=== PATIENT | female | born 1995 | race Hispanic/Latino ===

== ENCOUNTER 2018-04-08 20:00 | Day surgery (SDC) ==
[2018-04-08 20:30] VITALS: BP 138/85; TEMP 99.1; BMI 33.3
--- NOTE | 2018-04-08 20:52 | PDOC.FPROB ---
FMR OB H&P: HPI - History of Present Illness Chief Complaint: Contractions Indentification: 22 year old at 35.5 wks History of Present Illness: 22 year old at 35.5 wks presents with contractions since 2 AM. They were initially irregular and spaced out; however, around 16:00 patient states they started to occur every 10 minutes. She rates the pain at 5/10. She denies any vaginal bleeding, abnormal vaginal discharge, or LoF. Patient denies scotoma, headaches, RUQ pain. She does state that she only drinks 1-2 bottles of water per day. Primary Care Physician: Dr. Arana FMR OB H&P: Current - Care : 1 Para: 0 Gestational age: 35.5 wks Due date: 05/08/2018 - OB Labs Blood type: B RH: positive Antibody Screen: negative HIV: negative RPR: negative HepBsAg: negative Rubella: immune 1 hour gtt: abnormal 3 hour GTT: wnl GBS: unknown FMR OB H&P: History - Past Medical History PMH: Insignificant - OB History OB History: Abnormal 1h GTT w/ normal 3h GTT One elevated BP during - FLIGHT PURSER History FLIGHT PURSER History: Cyst on ovary - Surgical History Sx History: None - Social History Social History: Denies alcohol, tobacco, or drug use during - Family History Family History: Insignificant FMR OB H&P: Medications - Current Home Medications: Medication Instructions Recorded Confirmed Type Vit 108/Iron/Folic AC 1 tablet PO DAILY 04/08/18 04/08/18 History [ One Tablet] Allergies/Adverse Reactions: Allergies Allergy/AdvReac Type Severity Reaction Status Date / Time No Known Drug Allergies Allergy Verified 04/08/18 20:21 FMR OB H&P: ROS - Review of Systems General: denies: fever/chills, weight/appetite/sleep changes Eyes: denies: vision changes, double vision ENT: denies: nasal congestion, rhinorrhea, sore throat Cardiovascular: denies: chest pain, palpitation, edema Respiratory: denies: cough, congestion, shortness of breath Gastrointestinal: reports: abdominal pain. denies: nausea, vomiting Genitourinary (Female): reports: contractions, vaginal pressure. denies: dysuria, vaginal discharge, vaginal pain, vaginal bleeding Musculoskeletal: denies: pain, stiffness Neurologic: denies: numbness, syncope, seizures Integumentary: denies: itching, rash, lesions Hematologic/Lymphatic: denies: prolonged or excessive bleeding Psychological: denies: depression, anxiety FMR OB H&P: Vital Signs - Maternal Vital signs: Vital Signs - First Documented Temp Pulse Resp BP 99.1 F 104 H 18 138/85 04/08/18 20:19 04/08/18 20:19 04/08/18 20:19 04/08/18 20:19 - Heart Tones Baseline: 150 Variability: moderate Acceleration: present Deceleration: absent Category: category 1 [place] contractions every: None seen on monitor FMR OB H&P: Physical Exam - Physical Exam General: NAD, awake, alert and oriented HEENT: MMM Neck: supple Heart: RRR, normal S1/S2 General: CTAB, no respiratory distress Abdomen: soft, gravid, non-tender Musculoskeletal: pulses present Neurological: no tremor, no focal deficit Skin: no rash, capillary refill <2 seconds Lymphatic: no unusual bruising or bleeding, no purpura Psychiatric: intact recent and remote memory, good judgement and insight, normal mood and affect - Pelvic Exam Vulva: normal hair distribution, no lesions, no discharge, no blood SVE: closed/thick/high, posterior at 20:30 FMR OB H&P: A/P - Problem List (1) Current Visit: Yes Status: Acute Qualifiers: Weeks of gestation: 35 weeks Qualified Code(s): Z3A.35 - 35 weeks gestation of (2) Uterine contractions during Current Visit: Yes Status: Acute Code(s): O62.2 - OTHER UTERINE INERTIA Disposition: 22 year old at 35.5 wks presents with contractions 1. sIUP - Pre-term at 35.5 wks - Fragmented PNC ([place]ed [place] at >20 wks, but reportedly had care in [place] prior to 20 weeks) - Abnormal 1 hr GTT with nml 3h GTT - Cervical exam at 20:30 was closed/thick/high, posterior - Recheck in 2 hours 2. Contractions - Cervical check as above - Category I strip - Recheck in 2 hours - PO hydrate 3. Mild dehydration - Patient only drinking 1-2 bottles of water per day - Mildly tachycardic with contractions - PO hydrate and re-evaluate Dispo: Stable. Patient does not appear to be in labor. Will re-evaluate close to 2 hours and after PO hydration. Discussion: Date/Time: 04/08/182049 This H&P was discussed with Dr. Stout who agrees with the above documentation and plan. Signature: Jody Simon, DO PGY-2
--- NOTE | 2018-04-08 21:49 | PDOC.EVN ---
Event Note - Event Note Event Note: 21:48 on 04/08 No cervical change noted on repeat exam No contractions evident on monitor; Category I strip Patient s/p PO hydration; patient given info on how much water to drink per day Labor precautions provided D/c patient home; OB visit with Dr. Arana on 04/14 Jody Simon DO PGY-2
== END 2018-04-08 21:52 | disposition home or self-care (01) ==
LOC: L&D/OP 20:00
PROVIDERS: ATTEND Obstetrics & Gynecology
DX: O47.03 False labor before 37 completed weeks of gestation, third trimester (principal); O99.283 Endocrine, nutritional and metabolic diseases complicating pregnancy, third trimester; E86.0 Dehydration; Z79.899 Other long term (current) drug therapy; Z3A.35 35 weeks gestation of pregnancy
CPT/HCPCS: 59025; 99283

== ENCOUNTER 2018-04-22 21:38 | Day surgery (SDC) | payer OTHER ==
[2018-04-22 22:13] VITALS: BMI 29.9
--- NOTE | 2018-04-22 22:50 | PDOC.LDHP ---
Labor and Delivery H&P HPI: Patient of Dr Arana here in Triage for CTX for last HR EGA: 37 weeks 5 days HPI: 22yo G1 at early term with irregular CTX, no LOF, NO VB. Good FM, no DEJESUS, no recent trauama Review of Systems: complete ROS performed and as per HPI only Current gestational age (weeks): 37 (5 days) Dating criteria: last menstrual period Grav: 1 Para: 0 Current complications: none Abnormal US findings: No Current medications: none Previous surgical history: none Allergies/Adverse Reactions: Allergies Allergy/AdvReac Type Severity Reaction Status Date / Time No Known Drug Allergies Allergy Verified 04/22/18 22:14 - Physical Exam Vital signs reviewed and normal: yes Abnormal vital signs: pulse goes to 120 when she gets anxiuos General: NAD Heart: RRR Lungs: CTAB Abdomen: gravid Extremeties: no edema FHT: category 1 [place] contractions every: irritability with one contraction every 10-12 min - Vaginal Exam cm dilated: 0 Effacement: 25% Station: -1 - Assessment Threatened labor at early term: closed cervix - Plan Plan: observation in L&D (Cat 1 strip; threatened labor d/w patient at bedside; no evidence acute problem. Maternal pulse was slightly elevated when anxiuos but reduces to 90s once she calms down. No past HX anxiety)
--- NOTE | 2018-04-22 23:03 | PDOC.EVN ---
Event Note - Event Note Event Note: At bedside, I noted one BP of 146/70s...I will do serial BPs for an hour. She has no PIH sxs. Stadol for therapeutic rest discussed with her.
[2018-04-22] MEDS ORDERED: Butorphanol Tartrate 1 MG/ML VIAL IM SCH (23:15)
== END 2018-04-23 00:30 | disposition home or self-care (01) ==
LOC: L&D/OP 21:38
PROVIDERS: ATTEND Obstetrics & Gynecology
DX: O47.1 False labor at or after 37 completed weeks of gestation (principal); Z3A.37 37 weeks gestation of pregnancy; Z79.899 Other long term (current) drug therapy
CPT/HCPCS: 96372; 99283; J0595

== ENCOUNTER 2018-04-26 00:37 | Observation (INO) | payer MEDICAID, OTHER, SELFPAY ==
[2018-04-26 01:19] VITALS: BMI 31.6
[2018-04-26 01:46] LABS: Amnisure Test No Membranes Rupture (No Rupture)
[2018-04-26 01:47] LABS: Amnisure Internal Control QC ACCEPTABLE (ACCEPTABLE)
--- NOTE | 2018-04-26 03:45 | ER ---
DATE OF SERVICE: 04/26/2018 PRIMARY OB: Dr. Conor Arana. CHIEF COMPLAINT: Abdominal pain. HISTORY OF PRESENT ILLNESS: The patient is a 22-year-old G1, P0 female with an intrauterine at 38 weeks and 2 days, who is presenting with uterine contractions. The patient reports that her contractions occurring frequently and causing her pain and is here for re-evaluation. The patient was here a couple of days ago for similar complaint and was found to be fingertip thick and high. The patient denies leakage of fluid or vaginal bleeding. She denies headache, chest pain, shortness of breath, nausea, vomiting, diarrhea, constipation, any new rashes, hip problems, knee problems, or muscle weakness. She is having lower back pain. Denies vaginal bleeding or leakage of fluid or urinary urgency. PAST MEDICAL HISTORY: Negative. PAST SURGICAL HISTORY: Negative. ALLERGIES: NO KNOWN DRUG ALLERGIES. MEDICATIONS: vitamins. SOCIAL HISTORY: Denies drug, alcohol, or tobacco use. OB LABS: Blood type is B positive. Antibody screen is negative. VDRL is nonreactive. HIV nonreactive. Hepatitis B surface antigen nonreactive. She is rubella immune. Her 1-hour diabetes screen is 145. Her 3-hour test is within normal limits. GBS test is unavailable at time of dictation. REVIEW OF SYSTEMS: Per HPI. PHYSICAL EXAMINATION: VITAL SIGNS: Blood pressure is 152/88, heart rate of 93, respiratory rate of 20 , and temperature 97.9. GENERAL: She appears to be in no acute distress. She is alert, oriented, cooperative, pleasant to interact with. HEAD: Normocephalic and atraumatic. LUNGS: Clear to auscultation bilaterally. HEART: Regular rate and rhythm. ABDOMEN: Gravid. EXTREMITIES: Nontender, nonedematous. CERVICAL: 1, 50, and -3 station. heart tracing performed for abdominal pain and , baseline is noted to be in the 140s with moderate long-term variability, positive 15 x 15 accelerations, no decelerations. Tocometer shows irritability, but no consistent pattern. ASSESSMENT AND PLAN: The patient is a 22-year-old female here with contractions and no evidence of labor at this time. She does have initial blood pressure 152/88. All of her prior pressures in the last several days as she has presented frequently for the last several days are within normal limits. We will continue to monitor her for serial blood pressures and will check the urine protein. The patient will be reexamined in the next couple hours. Should her blood pressure returned to normal and continue there and there is no evidence of preeclampsia, The patient will be reassessed and likely discharged home with instructions to follow up in the next couple of days with her primary OB. Addendum: Blood pressures in the mild range intermittently for the first couple hours of evaluation. For the last three hours bp are normal with BP 110s/50s. I have reviewed the case with her primary OB. He has asked that she be admitted to observation and be reevaluated in a couple hours Job ID: [id number] MTDD
[2018-04-26 05:13] LABS: Creatinine, Urine 135.37 mg/dL (47-110)
[2018-04-26] MEDS ORDERED: Ondansetron PF 4 MG/2 ML Vial IVP PRN (07:04)
[2018-04-26] MEDS ORDERED: Ibuprofen 800 MG TAB PO PRN (07:04)
[2018-04-26] MEDS ORDERED: Lidocaine 1% (PF) 30 ML VIAL SC PRN (07:04)
[2018-04-26] MEDS ORDERED: NS / Oxytocin 40 units/1000ml 1,000 ML IV PRN (07:04)
[2018-04-26] MEDS ORDERED: Misoprostol 100 MCG TAB PO SCH (07:15)
[2018-04-26] MEDS ORDERED: Lactated Ringer's 1,000 ML IV SCH ×2 (07:15)
[2018-04-26 12:52] VITALS: BP 115/58; TEMP 98.3
--- NOTE | 2018-04-26 14:37 | DIS ---
DATE OF ADMISSION: 04/26/2018 DATE OF DISCHARGE: 04/26/2018 DIAGNOSES: 1. A 38-week intrauterine . 2. Initially elevated blood pressures. PROCEDURES: Nonstress test. HOSPITAL COURSE: The patient was placed on observation on 04/26/2018 for initially elevated blood pressures at term. Her cervix was found to be unfavorable and a PIH workup was performed. Her protein creatinine ratio was 0.12 and the patient was asymptomatic. She had normal blood pressures for 8 hours with a reactive NST. The patient was discussed with Dr. Arana, who agreed to discharge her for followup in his clinic tomorrow. FOLLOWUP: Dr. Arana's clinic tomorrow. DIET: Regular. ACTIVITIES: As tolerated. INSTRUCTIONS: Labor precautions and PIH precautions. Job ID: [id number] [facility]
== END 2018-04-26 12:54 | disposition home health service (06) ==
LOC: L&D/OP 00:37 → L&D 08:30
PROVIDERS: ADMIT Obstetrics & Gynecology; ATTEND Obstetrics & Gynecology
DX: O16.3 Unspecified maternal hypertension, third trimester (principal); Z3A.38 38 weeks gestation of pregnancy
CPT/HCPCS: 82570; 84112; 84156; 99285; G0378

== ENCOUNTER 2018-05-02 11:18 | Inpatient (IN) | payer MEDICAID, OTHER, SELFPAY ==
[2018-05-02 11:48] VITALS: BMI 31.1
[2018-05-02 12:43] LABS: ALT (SGPT) 11 U/L (8-55); AST (SGOT) 20 U/L (5-34); Albumin 2.8 g/dL (3.5-5.0); Alkaline Phosphatase 298 U/L (40-150); Anion Gap 12 mmol/L (10-20); BUN (Urea Nitrogen) 8 mg/dL (7.0-18.7); Bilirubin, Total 0.2 mg/dL (0.2-1.2); Calc. Creatinine Clearance 173 mL/min (70-130); Calcium 8.5 mg/dL (7.8-10.44); Carbon Dioxide 20 mmol/L (22-29); Chloride 108 mmol/L (98-107); Estimated GFR-MDRD Greater than 90; Glucose 74 mg/dL (70-105); Potassium 3.9 mmol/L (3.5-5.1); Protein, Total 5.8 g/dL (6.0-8.3); Sodium 136 mmol/L (136-145)
[2018-05-02 12:53] LABS: #Basophils 0.1 thou/uL (0.0-0.2); #Lymphocytes 1.5 thou/uL (1.20-3.40); #Monocytes 0.6 thou/uL (0.11-0.59); #Neutrophils 5.8 thou/uL (1.40-6.50); %Basophils 0.6 % (0.0-1.0); %Eosinophils 0.2 % (0.0-10.0); %Lymphocytes 18.4 % (28.0-48.0); %Monocytes 7.9 % (0.0-4.0); %Neutrophils 72.8 % (31.0-61.0); Hemoglobin 11.9 g/dL (12.0-16.0); Large Platelets MODERATE; MDiff Complete? YES; Mean Corpuscular HGB CONC 34.3 g/dL (32.0-36.0); Mean Corpuscular Hemoglobin 28.5 pg (25.0-35.0); Mean Corpuscular Volume 83.1 fL (78.0-98.0); Mean Platelet Volume 12.7 fL (7.4-10.4); Platelet Count 92 thou/uL (130-400); Platelet Morphology Comment Appears Decreased; RBC Distribution Width 12.2 % (11.5-14.5); RBC Morphology Normal; Red Blood Cell (RBC) Count 4.18 mill/uL (4.00-5.20)
[2018-05-02] MEDS ORDERED: Ondansetron PF 4 MG/2 ML Vial ONE ×2 (13:50→17:14)
[2018-05-02] MEDS ORDERED: Dexamethasone 20 MG/5 ML VIAL ONE (13:50)
[2018-05-02] MEDS ORDERED: Ketorolac Tromethamine 30 MG/ML VIAL ONE ×2 (13:50→17:14)
[2018-05-02] MEDS ORDERED: diphenhydrAMINE 50 MG/ML VIAL ONE ×2 (13:50→18:38)
[2018-05-02] MEDS ORDERED: Magnesium Sulfate 20 gm/500 ml 20 GM/500 ML BAG ONE (15:45)
[2018-05-02] MEDS: Lactated Ringer's 1,000 ML IV SCH (16:00)
[2018-05-02] MEDS ORDERED: Fentanyl 100 MCG/2 ML VIAL ONE (17:13)
[2018-05-02] MEDS ORDERED: Morphine PF 1 MG/ML SYR ONE (17:13)
[2018-05-02] MEDS ORDERED: Oxytocin 10 UNITS/ML VIAL ONE (17:14)
[2018-05-02] MEDS ORDERED: Bupivacaine 0.75% W/DEXTROSE 8.25% 2 ML AMP ONE (17:14)
[2018-05-02] MEDS ORDERED: ePHEDrine/0.9% NaCl/PF SYRINGE 50 mg/10 ml ONE (17:14)
[2018-05-02] MEDS ORDERED: Dexamethasone 4 mg/ml Vial ONE (17:14)
[2018-05-02] MEDS ORDERED: Lidocaine 2% 10 ML INJ ONE (17:14)
[2018-05-02] MEDS ORDERED: PHENYLEPHRINE-NS 100 MCG/ML 10 ML SYRINGE ONE (17:14)
[2018-05-02] MEDS ORDERED: Promethazine HCl 25 MG/ML VIAL IM PRN ×3 (17:33→23:50)
[2018-05-02] MEDS ORDERED: Ondansetron PF 4 MG/2 ML Vial IVP PRN ×3 (17:33→23:50)
[2018-05-02] MEDS ORDERED: CEFAZOLIN 1 GM VIAL ONE (17:36)
[2018-05-02] MEDS ORDERED: Bicitra 30 ML UDCUP PO SCH (17:45)
[2018-05-02] MEDS ORDERED: CEFAZOLIN 2 GM/50 ML BAG IVPB SCH (17:45)
[2018-05-02] MEDS ORDERED: L&D-Morphine 4 MG/ML VIAL SLOW IVP PRN (18:11)
[2018-05-02] MEDS ORDERED: Ketorolac Tromethamine 30 MG/ML VIAL IVP PRN (18:11)
[2018-05-02] MEDS ORDERED: Eucerin (Mineral Oil/Petrolatum,White) 30 gm Jar TOP PRN (18:11)
[2018-05-02] MEDS ORDERED: HYDROmorphone 2 MG/ML VIAL SLOW IVP PRN (18:11)
[2018-05-02] MEDS ORDERED: Naloxone HCl 0.4 mg/ml Vial IV PRN (18:11)
[2018-05-02] MEDS ORDERED: Naloxone HCl 0.4 mg/ml Vial IVP PRN ×2 (18:11)
[2018-05-02] MEDS ORDERED: Meperidine HCl/PF 25 MG/ML VIAL SLOW IVP PRN ×2 (18:11→20:23)
[2018-05-02] MEDS ORDERED: Ondansetron HCl/PF 4 MG/2 ML Vial IVP PRN (18:11)
[2018-05-02] MEDS ORDERED: diphenhydrAMINE 50 MG/ML VIAL IVP PRN (18:11)
[2018-05-02] MEDS ORDERED: Promethazine HCl 25 MG SUPP PR PRN (18:11)
[2018-05-02] MEDS ORDERED: Ketorolac Tromethamine 30 MG/ML VIAL IVP SCH (18:15)
[2018-05-02] MEDS ORDERED: Communication Order-Pharmacy FS SCH (18:15)
[2018-05-02 18:30] LABS: Hemoglobin 12.5 g/dL (12.0-16.0); Mean Corpuscular Hemoglobin 29.2 pg (25.0-35.0); Mean Corpuscular Volume 83.4 fL (78.0-98.0); Mean Platelet Volume 13.4 fL (7.4-10.4); Platelet Count 99 thou/uL (130-400); RBC Distribution Width 12.2 % (11.5-14.5); Red Blood Cell (RBC) Count 4.27 mill/uL (4.00-5.20); White Blood Cell (WBC) Count 8.4 thou/uL (4.8-10.8)
[2018-05-02 19:04] LABS: Hep B Surf Ag Non-Reactive S/CO (NonReactive); Syphilis Antibody Nonreactive (Nonreactive); Syphilis Antibody Index 0.03 S/CO (<1.00 Non-Reactive)
--- NOTE | 2018-05-02 19:15 | PDOC.LDHP ---
Labor and Delivery H&P HPI: 22 y/o at 39 and 1/7 weeks, presents from clinic with 3+ protein, elevated BP's for further work up for preeclampsia. Patient reports a new DEJESUS today, and platelets found to be at 99. 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 Patient was noted to have a large fetus over 4000g, cervix closed and unfavorable, and pelvis on exam seems very narrow, and well below average in size on clinical pelivimetry. After a discussion with patient and family about delivery, the patient consents to a primary . Due date: 05/08/18 Grav: 1 Para: 0 Current complications: preeclampsia with severe features Abnormal US findings: Yes (LGA Size) Current medications: pre- vitamins Allergies/Adverse Reactions: Allergies Allergy/AdvReac Type Severity Reaction Status Date / Time No Known Drug Allergies Allergy Verified 05/02/18 11:44 Social history: none - Physical Exam Vital signs reviewed and normal: yes General: NAD, resting Heart: RRR Lungs: nonlabored breathing Abdomen: gravid Extremeties: pitting edema FHT: category 1 - Assessment L&D Assessment: scheduled primary section - Plan Plan: admit to L&D, to OR for section
[2018-05-02] MEDS ORDERED: Misoprostol 200 MCG TAB ONE (20:37)
[2018-05-02] MEDS ORDERED: Carboprost 250 MCG/ML AMP ONE (20:42)
[2018-05-02] MEDS ORDERED: Diphenoxylate HCl/Atropine Tablet PO PRN ×2 (20:54→22:14)
[2018-05-02] MEDS ORDERED: Tranexamic Acid 1,000 MG in Sodium Chloride 0.9% 250 ML 250 ML IVPB SCH ×2 (20:56→21:15)
[2018-05-02] MEDS ORDERED: Tranexamic Acid 1,000 MG/10 ML VIAL ONE (21:00)
[2018-05-02 21:18] LABS: Hemoglobin 8.9 g/dL (12.0-16.0); Mean Corpuscular HGB CONC 34.3 g/dL (32.0-36.0); Mean Corpuscular Hemoglobin 29.3 pg (25.0-35.0); Mean Corpuscular Volume 85.2 fL (78.0-98.0); Mean Platelet Volume 11.3 fL (7.4-10.4); Platelet Count 51 thou/uL (130-400); Red Blood Cell (RBC) Count 3.05 mill/uL (4.00-5.20)
[2018-05-02] MEDS ORDERED: Misoprostol 200 MCG TAB PR SCH (21:45)
--- NOTE | 2018-05-02 21:56 | CON ---
DATE OF CONSULTATION: 05/02/2018 LABOR AND DELIVERY CONSULT TIME OF SERVICE: 2100 hours. I was called to see patient by Nursing and requested by Dr. Arana for hemorrhage. BRIEF HOSPITAL SUMMARY: The patient is a primigravida with severe preeclampsia, had a primary section with quantitative blood loss of approximately 650 mL between 1700 and 1800 this evening. The patient was diagnosed with severe preeclampsia not by blood pressure settings, but with platelet count of between 92,000 and 99,000. Liver enzymes within normal limits. She had a protein to creatinine ratio of approximately 1.1 on a spot urine. She had a primary section with a greater than 9 pounds and report by Dr. Arana of an unremarkable section with good uterine tone. Again, QBL was approximately 650. The patient had had an unremarkable postoperative course. Her blood pressure is in the 130s to 140s over 80s with good urine output. At approximately 2030 hours she was noted to have an elevated fundus and with fundal massage passed several large clots. The large clots and bleeding immediately after this were recently weighed for a quantitative blood loss at this time of approximately 850 on top of the intraoperative blood loss. The patient's blood loss somewhere between 1400 and 1500 mL total. I assessed the patient, she was noted to have a firm fundus at that time. She had a [id number] amount of bleeding with fundal pressure. No abdominal distention. Pulse is between 80 and 85, her blood pressure is running 85 to 88 over 55 to 60. Of note, the patient had just received one dose of IV Demerol. Urine output between 2000 hours and 2100 hours was approximately 125 mL. I administered the patient Hemabate. The next 5 to 10 minutes afterwards, her uterus remained firm; however, there was still some bleeding noted. Decision has been made to go ahead and administer 1 g of TXA IV push over the next 10 minutes and then we will administer 1 g of TXA IV piggyback over approximately 4 hours. Second being started on the patient at this time. We will check a hemogram after this. We will continue to follow the patient's progress. The patient has been typed and crossed for 2 units and may consider transfusion. Job ID: [id number]
[2018-05-02] MEDS ORDERED: Simethicone Chewable 80 MG TAB PO PRN (23:50)
[2018-05-02] MEDS ORDERED: NS / Oxytocin 40 units/1000ml 1,000 ML IV SCH (23:50)
[2018-05-02] MEDS ORDERED: Bisacodyl 10 MG SUPP PR PRN (23:50)
[2018-05-02] MEDS ORDERED: diphenhydrAMINE 25 MG CAP PO PRN (23:50)
[2018-05-02] MEDS: Magnesium Sulfate 20 gm/500 ml 20 GM/500 ML BAG IVPB SCH (23:57)
[2018-05-02] MEDS ORDERED: Docusate Calcium (SURFAK) 240 MG CAP PO SCH (23:59)
[2018-05-03] MEDS ORDERED: Diphenoxylate HCl/Atropine Tablet PO PRN (06:15)
[2018-05-03] MEDS ORDERED: HYDROcodone/Acetaminophen 5/325 mg Tablet PO PRN (06:15)
[2018-05-03 07:27] LABS: Hemoglobin 9.8 g/dL (12.0-16.0); Mean Corpuscular HGB CONC 34.2 g/dL (32.0-36.0); Mean Corpuscular Hemoglobin 28.4 pg (25.0-35.0); Mean Corpuscular Volume 83.1 fL (78.0-98.0); Mean Platelet Volume 12.1 fL (7.4-10.4); Platelet Count 106 thou/uL (130-400); RBC Distribution Width 12.1 % (11.5-14.5); Red Blood Cell (RBC) Count 3.46 mill/uL (4.00-5.20); White Blood Cell (WBC) Count 12.4 thou/uL (4.8-10.8)
--- NOTE | 2018-05-03 07:32 | PRG ---
DATE OF SERVICE: 05/03/2018 TIME OF SERVICE: 0645 hours. SUBJECTIVE: The patient is seen in followup from Care throughout the night. The patient's hematocrit post PPH episode was 26% with a platelet count of 51,000. Decision was made to go ahead and proceed with transfusion of 1 unit of PRBCs and administer TXA. The patient received 1 g of TXA IV push over approximately 10 minutes and then infusion of another gram of TXA over 3 hours. The patient's fundus firmed up, and bleeding decreased to scant. Urine output has decreased slightly from approximately 100 to 120 mL an hour to 60 to 70 mL an hour. She is resting comfortably. A.m. CBC is pending. OBJECTIVE: VITAL SIGNS: The patient's pulse currently is 103. Pulse has been up to 110 prior to blood transfusion. Blood pressure currently is 110/65. GENERAL: She is resting comfortably. ABDOMEN: Soft and nontender. Her fundus is firm. Scant lochia is noted. EXTREMITIES: Without clubbing, cyanosis, or edema. NEUROLOGIC: Reflexes remain brisk. LABORATORY DATA: CBC, pending. IMPRESSION: The patient with preeclampsia, severe, status post hemorrhage with approximately 1600 mL total quantitative blood loss. Now, status post 1 unit packed red blood cells, Hemabate 1 amp, TXA 2 g. PLAN: Follow up CBC. We will discuss the patient's case with Dr. Arana and assist as requested. Job ID: [id number]
[2018-05-03] MEDS ORDERED: Adacel (T-DAP) 0.5 ML SYRINGE IM ONE (09:00)
[2018-05-03] MEDS ORDERED: Measles/Mumps/Rubella 10 MCG/0.5 ML VIAL SC ONE (09:00)
[2018-05-03] MEDS ORDERED: Varicella virus, LIVE 0.5 ML VIAL SC ONE (09:00)
[2018-05-03] MEDS: Magnesium Sulfate 20 gm/500 ml 20 GM/500 ML BAG IVPB SCH (11:08)
[2018-05-03] MEDS: Lactated Ringer's 1,000 ML IV SCH (11:09)
--- NOTE | 2018-05-03 12:47 | PDOC.PP ---
Post Progress Note Post Day #: 1 PO intake tolerated: no Flatus: no Ambulation: no Vital Signs (12 hours) Pulse Ox 05/03/18 08:00 98 Weight Weight 170 lb - Physical Examination General: NAD Cardiovascular: no m/r/g, RRR Respiratory: clear to auscultation bilaterally, non-labored breathing Abdominal: lochia, no distention, appropriately TTP Extremities: negative homans (B) Skin: CS incision dry & intact, no rash Neurological: no gross focal deficits Psychiatric: A&Ox3, normal affect (Patient is completing a cours of magnesium sulfate, and has complete 1unit pRBC transfusion, now with light lochia and stable CBC.) Result Diagrams: 05/03/18 07:07 05/02/18 12:21 Additional Labs: Post Labs Blood Type B POSITIVE 05/02/18 15:30 Hep Bs Antigen Non-Reactive S/CO (NonReactive) 05/02/18 15:30
[2018-05-03] MEDS: Docusate Calcium (SURFAK) 240 MG CAP PO SCH ×2 (21:38→22:54)
[2018-05-04] MEDS: HYDROcodone/Acetaminophen 5/325 mg Tablet PO PRN ×4 (01:21→21:56)
[2018-05-04] MEDS: Ibuprofen 800 MG TAB PO SCH ×3 (05:01→21:51)
[2018-05-04] MEDS: Docusate Calcium (SURFAK) 240 MG CAP PO SCH ×2 (10:58→21:51)
--- NOTE | 2018-05-05 04:40 | OP ---
DATE OF PROCEDURE: 05/02/2018 PREOPERATIVE DIAGNOSIS: Intrauterine at 39 weeks and one day with a diagnosis of atypical HELLP syndrome/severe preeclampsia, unfavorable cervix, suspected large for gestational age fetus with small contracted pelvic size and shape. POSTOPERATIVE DIAGNOSIS: Intrauterine at 39 weeks and one day with a diagnosis of atypical HELLP syndrome/severe preeclampsia, unfavorable cervix, suspected large for gestational age fetus with small contracted pelvic size and shape. PROCEDURE: Primary low-transverse section. SURGEON: Conor Arana M.D. FINDINGS: Viable female infant, weighing 4310 g or 9 pounds and 8 ounces. Apgars of 8 and 8. QUANTITATIVE BLOOD LOSS: At the time of section 640 mL. DETAILS OF THE PROCEDURE: The patient was consented and taken back to the operating room where spinal anesthesia was found to be adequate. She was then prepped and draped in the normal sterile fashion. A timeout was performed by the entire operative team. The incision was then marked with a marking pen tested using sharp pickups. An incision was then made with a scalpel. The incision was carried through the adipose tissue down to the underlying rectus fascia using both sharp dissection as well as cautery. Once the fascia was identified, it was incised in the midline and then the fascial incision was carried through in both lateral directions using sharp as well as cautery dissection techniques. Next, the superior aspect of the rectus fascia was grasped with 2 Marva clamps, which was tented up and the rectus muscles were dissected off using blunt dissection as well as cautery dissection. Similarly, the inferior aspect of the fascial incision was grasped with 2 Marva clamps, tented up and the rectus muscles were dissected off bluntly as well as sharply. Next, the rectus muscles were in the midline and the peritoneum identified. The peritoneum was then carefully grasped with 2 hemostats and entered sharply. The peritoneal incision was extended superiorly and inferiorly and bladder blade was placed in the lower abdomen. At this point, the uterus was identified and the bladder flap was then developed using pickups with teeth as well as Metzenbaum scissors in both lateral directions. The bladder flap was then dissected downwards using the band ripsaw operator's finger as well as Metzenbaum scissors. The bladder blade was replaced. The lower uterine segment was then identified and entered sharply using a clean scalpel. The uterine incision was then dissected downwards until thin layer of muscle remained and this was entered bluntly using a hemostat to avoid any injury to the baby. The uterine incision was then stretched using two fingers in both lateral directions. An amniotomy was performed artificially using a hemostat and the baby was delivered using fundal pressure in a gentle fashion. Once out, the baby's mouth and nose were bulb suctioned, cord clamped and cut, and the baby was handed to waiting attendants. Next, the uterus was exteriorized, cleared of all clots and debris and the uterine incision was repaired with #1 Monocryl in a running locking fashion. A 2nd suture of the same type was used to obtain complete hemostasis at the uterine incision. The bladder flap was reapproximated using 3-0 Monocryl. Next, patient's left and right adnexa were inspected and appeared to be within normal limits. The posterior cul-de-sac was blotted dry and hemostasis assured. One more look at the uterine incision demonstrated hemostasis. Next, the uterus was replaced back within the abdomen. The peritoneum was reapproximated using 2-0 Monocryl without difficulty. The rectus muscles were then allowed to come back together and 0 chromic was used to aid in reapproximation of the muscle as necessary. The rectus fascia was then reapproximated in a running fashion using 0 Vicryl suture. The adipose tissue was then examined and appeared to be well approximated without any obvious separations. Finally, the skin was reapproximated with 3-0 Monocryl on a Cecil needle without difficulty and Dermabond adhesive was applied to the skin. Once the glue was dry, the drapes were removed and the patient was transferred to an ambulatory bed where she was taken to recovery awake and in stable condition. Sponge, lap, and needle counts were correct x3. Job ID: [id number] [facility]
[2018-05-05] MEDS: Ibuprofen 800 MG TAB PO SCH ×3 (06:04→21:39)
[2018-05-05] MEDS: Docusate Calcium (SURFAK) 240 MG CAP PO SCH ×2 (08:54→21:40)
[2018-05-05] MEDS: NIFEdipine XL 60 MG TAB PO SCH (08:54)
[2018-05-05] MEDS: HYDROcodone/Acetaminophen 5/325 mg Tablet PO PRN (17:43)
[2018-05-06] MEDS: Ibuprofen 800 MG TAB PO SCH (06:22)
[2018-05-06] MEDS: Docusate Calcium (SURFAK) 240 MG CAP PO SCH (08:11)
[2018-05-06] MEDS: NIFEdipine XL 60 MG TAB PO SCH (09:05)
[2018-05-06 11:33] VITALS: BP 136/88; TEMP 98.6
== END 2018-05-06 14:00 | disposition home or self-care (01) | DRG 788 ==
LOC: L&D/OP 11:18 → L&D 17:58 → 3SE 05-03 23:04
PROVIDERS: ADMIT Obstetrics & Gynecology; ATTEND Obstetrics & Gynecology
PROC: 10D00Z1 Extraction of Products of Conception, Low, Open Approach (ICD-10-PCS; principal; 2018-05-02)
PROC: 30233N1 Transfusion of Nonautologous Red Blood Cells into Peripheral Vein, Percutaneous Approach (ICD-10-PCS; 2018-05-02)
DX: O14.24 HELLP syndrome, complicating childbirth (principal); O36.63X0 Maternal care for excessive fetal growth, third trimester, not applicable or unspecified; Z3A.39 39 weeks gestation of pregnancy; Z37.0 Single live birth; O34.43 Maternal care for other abnormalities of cervix, third trimester; O33.1 Maternal care for disproportion due to generally contracted pelvis; O72.1 Other immediate postpartum hemorrhage; O77.0 Labor and delivery complicated by meconium in amniotic fluid; Z3A.00 Weeks of gestation of pregnancy not specified
CPT/HCPCS: 36415; 36430; 51702; 80053; 82570; 84156; 85025; 85027; 86780; 86850; 86900; 86901; 87340; 99285; J0690; J1100; J1200; J1885; J2175; J2274; J2405; J2590; J3010; J3475; J3490; J7050; P9016

== ENCOUNTER 2018-05-08 22:06 | Emergency (ER) | payer MEDICAID, OTHER, SELFPAY | END 2018-05-08 23:05 | disposition home or self-care (01) | LOC: ERS 22:06 | DX: F41.9 Anxiety disorder, unspecified (principal); I10 Essential (primary) hypertension; Z79.899 Other long term (current) drug therapy | CPT/HCPCS: 87804; 99283 ==